=== PATIENT | male | born 1955 | race Caucasian/White ===

== ENCOUNTER 2017-12-21 19:34 | Emergency (ER) | payer OTHER ==
--- NOTE | 2017-12-21 19:34 | ER Report ---
History and Physical Time Seen By MD: 19:33 HPI/ROS CHIEF COMPLAINT: Fall down 7 steps HISTORY OF PRESENT ILLNESS: 62-year-old male with history of brain tumor not on anticoagulation presents with sudden fall down 7 steps landed facedown on left side of his face. Complains of pain in the left face left knee and right hand. He denies headache nausea vomiting back pain belly pain hip pain lower extremity pain other than as above upper extremity pain other than as above shoulder pain chest pain or shortness of breath. He has multiple abrasions on the face and some on the right hand. Tetanus shot status is unknown per . Per EMS no other injury identified neurologically intact no signs of weakness or paralysis. Patient was is no complaints at this time other than as above. REVIEW OF SYSTEMS: Constitutional: No fever, no chills. Eyes: No discharge. ENT: No sore throat. Cardiovascular: No chest pain, no palpitations. Respiratory: No cough, no shortness of breath. Gastrointestinal: No abdominal pain, no vomiting. Genitourinary: No hematuria. Musculoskeletal: No back pain. Skin: No rashes. Neurological: No headache. Allergies: Coded Allergies: Sulfa (Sulfonamide Antibiotics) (Verified Allergy, Severe, ANAPHYLAXIS, ) hydrocodone (Verified Allergy, Severe, PROJECTILE VOMITING, 12/21/17) levofloxacin (Verified Allergy, Severe, Vertigo, 12/21/17) oxycodone (Verified Allergy, Severe, PROJECTILE VOMITING, 12/21/17) codeine (Verified Adverse Reaction, Severe, PROFECTILE VOMITING, 12/21/17) Home Meds Reported Medications Levothyroxine Sodium (LEVOTHYROXINE SODIUM) 50 Mcg Tablet, 25 MCG PO QDAY, TAB 01/07/16 Cholecalciferol (Vitamin D3) (VITAMIN D3) 1,000 Unit Tablet, 125 UNIT PO BID, TAB 01/07/16 Topiramate (TOPIRAMATE) 200 Mg Tablet, 200 MG PO BID 12/17/15 Calcium Carbonate (Calcium) 600 Mg Tablet, 250 MG PO BID, 0 Refills 08/20/11 Sertraline Hcl (Sertraline Hcl) 100 Mg Tablet, 200 MG PO HS, 0 Refills 08/20/11 Omeprazole (Omeprazole) 20 Mg Tablet.dr, 20 MG PO QDAY, 0 Refills 08/20/11 Lamotrigine (Lamotrigine) 150 Mg Tablet, 200 MG PO BID, 0 Refills 08/20/11 Hx Smoking: Yes (1 1/2 PACKS DAILY FOR X 29 YEARS) Smoking Status: Former Smoker Exposure to Second Hand Smoke?: No Hx Substance Use Disorder: No Hx Alcohol Use: No Physical Exam General Appearance: The patient is alert, has no immediate need for airway protection and no signs of toxicity. He does not appear intoxicated. He does not appear to be in severe distress. He is responding to questions and commands. Eyes: Pupils equal and round no pallor or injection. Extraocular movements appear to be intact ENT, Mouth: Mucous membranes are moist. Small amount of blood present in the mouth does not appear to be coming from teeth left knee area with dried blood no crepitus overlying the bridge of the nose Face: Tenderness to palpation left zygoma. Respiratory: There are no retractions, lungs are clear to auscultation. Cardiovascular: Regular rate and rhythm. No murmurs gallops or rubs Gastrointestinal: Abdomen is soft and non tender, no masses, bowel sounds normal. Neurological: Normal gross neuro exam moving all 4 extremities and sensation intact 4 extremities awake and talking answering questions appropriately with no apparent cranial nerve deficiencies at this time. Skin: Warm and dry, no rashes. Musculoskeletal: Neck is supple non tender. No midline CT or L-spine tenderness Extremities are nontender, nonswollen and have full range of motion. Left knee minimal tenderness right hand tenderness along the medial aspect no wrist tenderness appreciated no ankle tenderness no other extremity or shoulder or collarbone tenderness appreciated Otherwise normal DIFFERENTIAL DIAGNOSIS: After history and physical exam differential diagnosis was considered for facial fractures intracranial hemorrhage syncope doubt cardiac etiology patient is mentating well per 's report. Medical Decision Making Data Points Laboratory Hematology Test 12/21/17 21:08 12/21/17 21:17 Chemistry Test 12/21/17 21:08 12/21/17 21:17 ED Course/Re-evaluation ED Course 12/21/2017 9:32:53 pm Radiology call back 3 mm subdural without midline shift is present on the right side left maxillary sinus blow out fracture inferior orbital fracture left zygomatic fracture and left pterygoid plate fracture. The following was medicated with the family who understands and agrees with transfer at this time. Transfer center at [facility] contacted as discussed with the family I discussed the case trauma surgeon Dr. Salena Roberts who agrees with transfer I then discussed the case with Dr. Ck Mondragon who will accept the patient to the emergency department. Decision to Disposition Date: Dec 21, 2017 Decision to Disposition Time: 21:32 Depart Departure Impression: Primary Impression: Subdural hemorrhage following injury Additional Impression: Facial fracture due to fall Condition: Improved Disposition: XFER TO [facility] Problem Qualifiers Primary Impression: Subdural hemorrhage following injury Encounter type: initial encounter Loss of consciousness presence/duration: without LOC Qualified Codes: S06.5X0A - Traumatic subdural hemorrhage without loss of consciousness, initial encounter Additional Impression: Facial fracture due to fall Encounter type: initial encounter Fracture type: closed Qualified Codes: S02.92XA - Unspecified fracture of facial bones, initial encounter for closed fracture; W19.XXXA - Unspecified fall, initial encounter MATT JENNINGS MD Dec 21, 2017 19:34
[2017-12-21] MEDS ORDERED: TETANUS/DIP TOX ADSORB PED IM ONE (19:45)
[2017-12-21] MEDS ORDERED: DIPHTH/TETANUS/ACEL. PERTUSSIS IM ONLY ONE (20:00)
--- NOTE | 2017-12-21 20:25 | RADIOLOGY IMAGING REPORT ---
FACILITY: [facility] [place] PATIENT NAME: Ray Kelly : 1955 MR: [id number] V: [id number] EXAM DATE: ORDERING PHYSICIAN: MATT JENNINGS TECHNOLOGIST: Location: [facility] Patient: Ray Kelly : 1955 Visit/Account:[id number] Date of Sevice: 12/21/2017 INDICATION: Fall with knee pain and hand pain. DATE: 12/21/2017 8:19 PM. TECHNIQUE: AP and frog-leg view of the pelvis. COMPARISON: None FINDINGS: The pelvic ring is intact. Mild degenerative findings at the hips. No evidence of fracture or dislocation. The sacrum is partially obscured by stool and bowel gas. IMPRESSION: No evidence of fracture or dislocation. Report Dictated By: Jenny Anderson MD at 12/21/2017 8:19 PM Report E-Signed By: Jenny Anderson MD at 12/21/2017 8:20 PM WSN:[id number]
--- NOTE | 2017-12-21 20:33 | RADIOLOGY IMAGING REPORT ---
FACILITY: [facility] PATIENT NAME: Ray Kelly : 1955 MR: [id number] V: [id number] EXAM DATE: ORDERING PHYSICIAN: MTAT JENNINGS TECHNOLOGIST: Location: [facility] [place] Patient: Ray Kelly : 1955 Visit/Account:[id number] Date of Sevice: 12/21/2017 CHEST SINGLE AP Indication: Fall down steps.. Comparison: 08/20/2011. Findings: Cardiomediastinal silhouette and pulmonary vessels within normal limits for the technique and inspira tion. There is no focal infiltrate or lobar consolidation. No pneumothorax or pleural effusion. Chronic interstitial changes. No discrete nodule. Scar seen in the right lower lobe. Upper abdomen is unremarkable. No discrete or displaced rib fractures. No discrete acute bony abnormality. IMPRESSION: 1. No acute cardiopulmonary process. No indication of thoracic trauma. Report Dictated By: Ck Hays at 12/21/2017 8:27 PM Report E-Signed By: Ck Hays at 12/21/2017 8:29 PM WSN:[id number]
--- NOTE | 2017-12-21 20:34 | RADIOLOGY IMAGING REPORT ---
FACILITY: [facility] PATIENT NAME: Ray Kelly : 1955 MR: [id number] V: [id number] EXAM DATE: ORDERING PHYSICIAN: MATT JENNINGS TECHNOLOGIST: Location: Patient: Ray Kelly : 1955 Visit/Account:[id number] Date of Sevice: 12/21/2017 INDICATION: pain, tenderness; for fracture. DATE: 12/21/2017 8:29 PM. TECHNIQUE: HAND COMPLETE RIGHT COMPARISON: None FINDINGS: Normal alignment without fracture or dislocation. IMPRESSION: No fracture identified. Report Dictated By: Jenny Anderson MD at 12/21/2017 8:29 PM Report E-Signed By: Jenny Anderson MD at 12/21/2017 8:29 PM WSN:[id number]
--- NOTE | 2017-12-21 20:38 | RADIOLOGY IMAGING REPORT ---
FACILITY: [facility] [place] PATIENT NAME: Ray Kelly : 1955 MR: [id number] V: [id number] EXAM DATE: ORDERING PHYSICIAN: MATT JENNINGS TECHNOLOGIST: Location: [facility] Patient: Ray Kelly : 1955 Visit/Account:[id number] Date of Sevice: 12/21/2017 INDICATION: . Fall with knee pain. DATE: 12/21/2017 8:33 PM. TECHNIQUE: KNEE 3 VIEW LEFT COMPARISON: None FINDINGS: Normal alignment. No evidence of fracture or dislocation. Tiny marginal patellar osteophyte . IMPRESSION: No fracture or dislocation at the knee. Report Dictated By: Jenny Anderson MD at 12/21/2017 8:33 PM Report E-Signed By: Jenny Anderosn MD at 12/21/2017 8:35 PM WSN:[id number]
[2017-12-21] MEDS ORDERED: fentaNYL CITR 100 MCG/2 ML AMP IVP ONE (21:15)
--- NOTE | 2017-12-21 21:22 | EKG ---
FACILITY: [facility] - [place] PATIENT NAME: TERESITA GARCIA : [id number] MR: [id number] V: [id number] EXAM DATE: ORDERING PHYSICIAN: MATT JENNINGS TECHNOLOGIST: SUNDAY Test Reason : HTN Blood Pressure : / mmHG Vent. Rate : 067 BPM Atrial Rate : 067 BPM P-R Int : 158 ms QRS Dur : 084 ms QT Int : 410 ms P-R-T Axes : 068 032 056 degrees QTc Int : 433 ms Normal sinus rhythm Low voltage QRS Inferior infarct , age undetermined Abnormal ECG No previous ECGs available Confirmed by MUKUL GARNER ([id number]) on 12/22/2017 12:30:51 PM Referred By: Confirmed By:MUKUL GARNER
[2017-12-21 21:23] LABS: PLATELET COUNT, AUTOMATED 168 K/uL (150-450)
--- NOTE | 2017-12-21 21:27 | RADIOLOGY IMAGING REPORT ---
FACILITY: [facility] PATIENT NAME: Ray Kelly : 1955 MR: [id number] V: [id number] EXAM DATE: ORDERING PHYSICIAN: MATT JENNINGS TECHNOLOGIST: Location: [facility] Patient: Ray Kelly : 1955 Visit/Account:[id number] Date of Sevice: 12/21/2017 C-SPINE W/O CONTRAST HISTORY: Fall COMPARISON STUDIES: none TECHNIQUE: Axial images were obtained from the skull base through the upper thoracic spine without i ntravenous contrast. Coronal and sagittal reformatted images were obtained from the axial source data . One of the following dose optimization techniques was utilized in the performance of this exam: Autom ated exposure control; adjustment of the mA and/or kV according to the patient's size; or use of an i terative reconstruction technique. Specific details can be referenced in the facility's radiology C T exam operational policy. FINDINGS: There is no acute fracture the cervical spine. Degenerative changes are noted. Benign cystic lesion i n the C6 vertebral body is noted. There is normal AP and facet alignment. Facet arthropathy is noted. Lung apices are unremarkable. Soft tissues are unremarkable. IMPRESSION: 1. No evidence for an acute fracture of the cervical spine. 2. Mild degenerative changes are noted in the spine. Results were called to MATT JENNINGS at 12/21/2017 9:24 PM. Report Dictated By: Ck Levy MD at 12/21/2017 9:07 PM Report E-Signed By: Ck Levy MD at 12/21/2017 9:24 PM WSN:[id number]
--- NOTE | 2017-12-21 21:27 | RADIOLOGY IMAGING REPORT ---
[place] [facility] [place] : 1955 MR: [id number] V: [id number] EXAM DATE: ORDERING PHYSICIAN: MATT JENNINGS TECHNOLOGIST: Location: [facility] [place] Patient: Ray Kelly : 1955 Visit/Account:[id number] Date of Sevice: 12/21/2017 HEAD W/O CONTRAST HISTORY: Fall COMPARISON STUDIES: none TECHNIQUE: Contiguous axial images were obtained from the skull base to the vertex. One of the following dose optimization techniques was utilized in the performance of this exam: Autom ated exposure control; adjustment of the mA and/or kV according to the patient's size; or use of an i terative reconstruction technique. Specific details can be referenced in the facility's radiology C T exam operational policy. FINDINGS: Postoperative changes are noted from a high right frontal craniotomy. 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 Small right hemispheric subdural hematoma measures 3 mm is maximally image 59, series 2. No significa nt mass effect or shift. There is generalized cortical atrophy of the left hemisphere. Calcification in the right parietal whi te matter is noted calcification in the high right frontal medina-white junction appears chronic. The ventricles are patent midline. The osseous structures demonstrate a blowout fracture of the left maxillary sinus and left orbit with fractures of the left zygoma and left pterygoid plate which will be described on the facial CT. Nasa l septum is deviated towards the left. Air-fluid level left maxillary sinus is noted. IMPRESSION: 1. Small right hemispheric subdural hematoma measuring 3 mm in maximal thickness. No significant mass effect or shift. 2. Postoperative changes are noted from prior high right frontal craniotomy. 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 3. Fractures involve the left maxillary sinus, floor of left orbit, left zygoma and left pterygoid pl ate are noted and will be described on the facial CT. Results were called to MATT JENNINGS at 12/21/2017 9:23 PM. Report Dictated By: Ck Levy MD at 12/21/2017 8:57 PM Report E-Signed By: Ck Levy MD at 12/21/2017 9:23 PM WSN:[id number]
--- NOTE | 2017-12-21 21:28 | RADIOLOGY IMAGING REPORT ---
FACILITY: [facility] PATIENT NAME: Ray Kelly : 1955 MR: [id number] V: [id number] EXAM DATE: ORDERING PHYSICIAN: MATT JENNINGS TECHNOLOGIST: Location: [facility] - [place] Patient: Ray Kelly : 1955 Visit/Account:[id number] Date of Sevice: 12/21/2017 FACIAL BONES W/O CONTRAST HISTORY: fall, fractures COMPARISON STUDIES: none TECHNIQUE: Axial images were obtained from the superior aspect of the orbits through the inferior as pect of mandible without intravenous contrast. Coronal and sagittal reformatted images were obtained from the axial source data. One of the following dose optimization techniques was utilized in the per formance of this exam: Automated exposure control; adjustment of the mA and/or kV according to the pa tient's size; or use of an iterative reconstruction technique. Specific details can be referenced i n the facility's radiology CT exam operational policy. CONTRAST: None FINDINGS: There are comminuted fractures of the left maxillary sinus involving the anterior, posterior and late ral scott. Hemorrhage and fluid in left maxillary sinus is noted. The lateral wall is comminuted and displaced. Subtle fractures of the floor of left orbit are noted without significant displacement. No muscular entrapment. Minimally displaced left zygomatic fracture is noted. There is a fracture of the left lateral pterygo id plate. The optic canal appears to be patent. Nasal septum is deviated towards the left. Nasal bones are not acutely fractured. Soft tissue swelling near the left cheek and left periorbital region are noted. No other discrete fractures. What is seen of the brain demonstrates a small right hemispheric subdural hematoma measuring 3 mm wit hout significant mass effect or shift. The globes are unremarkable. IMPRESSION: 1. Comminuted fracture of the left maxillary sinus involving the anterior, lateral, superior and post erior scott. Lateral wall is comminuted. Subtle fractures of the floor of left orbit are noted withou t displacement or muscular entrapment. Left maxillary sinus is filled with fluid and hemorrhage. 2. Minimally displaced fracture of the left zygoma. 3. Fracture of the left lateral pterygoid plate. 4. Small right hemispheric subdural hematoma measuring 3 mm without significant mass effect or shift. Results were called to Dr. Kelly at 12/21/2017 9:21 PM. Report Dictated By: Ck Levy MD at 12/21/2017 9:12 PM Report E-Signed By: Ck Levy MD at 12/21/2017 9:22 PM WSN:[id number]
[2017-12-21] MEDS ORDERED: ONDANSETRON 4 MG/2 ML VIAL IVP ONE (21:40)
[2017-12-21 22:30] VITALS: BP 123/82
[2017-12-21] MEDS ORDERED: NS(*) 0.9% 250 ML BAG 250 ML ONE (22:43)
== END 2017-12-21 23:03 | disposition short-term general hospital (02) ==
LOC: ER 19:38
DX: S06.5X0A Traumatic subdural hemorrhage without loss of consciousness, initial encounter (principal); S02.19XA Other fracture of base of skull, initial encounter for closed fracture; S02.32XA Fracture of orbital floor, left side, initial encounter for closed fracture; S02.40FA Zygomatic fracture, left side, initial encounter for closed fracture; W10.9XXA Fall (on) (from) unspecified stairs and steps, initial encounter
CPT/HCPCS: 70450; 70486; 71045; 72125; 72190; 73130; 73562; 84484; 85025; 90471; 90715; 93005; 96374; 96375; 99285; C1758; J2405; J3010; J7050; 82040; 82247; 82310; 82374; 82435; 82565; 82947; 84075; 84132; 84155; 84295; 84450; 84460; 84520

== ENCOUNTER → 2017-12-21 | Outpatient (CLI) | payer OTHER ==
[~2017-12-21] MED LIST: CALC600T72 PO; CHOL10005 PO; FIN5 PO; LAMO150T36 PO; LEVO50TA86 PO; OMEP-153 PO; SERT-179 PO; SULI200T84 PO; TOPI200T61 PO
== END ==
LOC: AMB 19:11
PROVIDERS: ATTEND Nurse Practitioner
DX: S00.81XA Abrasion of other part of head, initial encounter (principal); W10.8XXA Fall (on) (from) other stairs and steps, initial encounter; Y92.017 Garden or yard in single-family (private) house as the place of occurrence of the external cause
CPT/HCPCS: A0425; A0427

== ENCOUNTER → 2017-12-21 | Outpatient (REF) | LOC: AMB 21:59 | PROVIDERS: ATTEND Nurse Practitioner | DX: Z02.9 Encounter for administrative examinations, unspecified (principal) ==